=== PATIENT | male | born 1935 | race Caucasian/White ===

== ENCOUNTER → 2016-12-04 | Outpatient (CLI) | payer MEDICARE, BC ==
--- NOTE | 2016-12-04 08:01 | CT ---
EXAMINATION TYPE: CT brain wo con DATE OF EXAM: 12/04/2016 COMPARISON: NONE HISTORY: altered mental status, difficulty sleeping CT DLP: 973.[address] of the brain was performed. The ventricles, basal cisterns and sulci overlying the cerebral convexities demonstrate mild to moder ate enlargement. There is no evidence for intracranial hemorrhage or sulcal effacement. There is decreased attenuation about the periventricular white matter and deep white matter of both c erebral hemispheres, compatible with chronic small vessel ischemia. Differential diagnosis does inclu de demyelination. No mass effects are seen.No midline shift. Osseous calvarium is intact. If symptoms persist consider MRI. IMPRESSION: 1. Age related atrophic and chronic small vessel ischemic change without acute intracranial process s een at this time.
== END ==
LOC: RADCTMAIN 07:28
PROVIDERS: ATTEND Family Medicine
DX: G31.1 Senile degeneration of brain, not elsewhere classified (principal); R90.89 Other abnormal findings on diagnostic imaging of central nervous system
CPT/HCPCS: 70450

== ENCOUNTER → 2017-03-26 | Outpatient (CLI) | payer MEDICARE, BC ==
--- NOTE | 2017-03-26 16:37 | CONS ---
CONSULTATION REASON FOR CONSULTATION: Sleep apnea. 81-year-old male patient, referred to me for evaluation of sleep apnea. Nevertheless, he seems to have much more problems than simple TOAN. Noted that obstructive sleep apnea is suspected based on his loud snoring and witnessed apneas as report by his . Never the less, there are other factors that have been fragmenting this patient's sleep including excessive nocturia as the patient has undergone radiation therapy for prostate cancer and since then, he is having excessive nocturia where he has to wake up every couple of hours to empty his bladder. He also has chronic tremors and some degree of restlessness lower extremities for which he was maintained on the Requip. He also reports episodes of nightmares once or twice a month. He goes to bed around 11:00 p.m. and wakes up at 5:30 a.m. in the morning. He averages around 6 hours of sleep in general. He wakes up tired and falls asleep during the day. He takes naps. He is having troubles with memory and concentration. He has long history of claustrophobia. I am not sure he is going to be a good candidate for CPAP therapy based on his history of claustrophobia. He is also known to have multiple other medical problems and comorbidities. His current [place] score of 9. He has gained around 35 pounds over the past 5 years. He feels very sleepy while driving. At times he has dozed off behind the wheel. No history of any motor vehicle accidents because of feeling sleepy or tired. PAST MEDICAL HISTORY: 1. Obesity. 2. Prostate cancer with previous radiation therapy. 3. Coronary artery disease with previous coronary stenting. 4. Hyperlipidemia. 5. T11 spinal fracture. 6. Glaucoma. 7. Hypertension. 8. Atrial fibrillation. 9. RLS. 10.Grinding of the teeth. 11.Claustrophobia. SURGICAL HISTORY: Includes cardiac catheterization, stent insertion. Hernia repair. Laser eye surgery and the prostate radiation therapy. DRUG ALLERGIES: Not known. OUTPATIENT MEDICATION LIST: This patient is on low-dose aspirin 81 mg p.o. daily, metoprolol 50 mg p.o. daily, Protonix 40 mg p.o. daily, multivitamin 1 tablet a day, Oxycodone 7.5/325 on as needed basis, losartan 25 mg p.o. daily, Xarelto 20 mg daily, Lipitor 80 mg p.o. daily and Requip 1 mg p.o. daily. SOCIAL HISTORY: Nonsmoker. No history of alcohol. No history of IV drugs. FAMILY HISTORY: Negative for sleep apnea or any other form of sleep disease disorder. REVIEW OF SYSTEMS: 12-point review of system was done. Positive findings are mentioned above in history of present illness. Of significance is the absence of any sleepwalking or sleep talking. No palpitation. No heartburn. No nocturnal chest pain. No shortness of breath. No history of depression. He has some anxiety and claustrophobia. No ulcers. No liver problems. No diabetes mellitus. Nocturia as mentioned related to previous prostate radiation therapy for underlying current cancer. No recurrent bronchitis. No insomnia. No epilepsy or stroke, fibromyalgia or degenerative arthritis. PHYSICAL EXAMINATION: BP is 151/76, pulse 60, respirations 16, temperature 98.3 saturation 96% on room air. Weight is 244. Height is 5 feet 6 inches and neck size 17.5 inches, BMI 39.3. GENERAL APPEARANCE: Calm, comfortable, in no acute distress. HEENT: Mallampati class IV. There is no goiter or neck masses. Obvious grinding of the teeth. LUNGS: Clear to auscultation. HEART: Sounds regular rhythm. Normal S1, S2. No S3. No murmurs. ABDOMEN: Soft, nontender. No organomegaly. EXTREMITIES: No edema. No cyanosis or clubbing. SKIN: Negative for any wounds or ulceration. NEUROLOGIC: A and O x3. No focal neurological deficit. IMPRESSION: 1. Sleep fragmentation with excessive daytime sleepiness with [place] score of 9. The patient has multiple causes for chronic hypersomnia and the possibilities are A) Suspected sleep breathing disorder; B) Nocturia attributed to his chronic prostate disorder; C) restless legs syndrome currently on Requip; D) grinding/bruxism. 2. Prostate cancer with previous radiation therapy. 3. Coronary artery disease with previous coronary stenting. 4. Hyperlipidemia. 5. Glaucoma. 6. Hypertension. 7. Chronic cardiac arrhythmia with atrial fibrillation on Xarelto. 8. Restless leg syndrome. 9. Claustrophobia. PLAN: Will set up this patient for a screening polysomnogram. I think it is important for the patient to have an in lab study to look for all these factors and decide which one of these comorbidities is the most contributing factor for sleep fragmentation. The patient has had a home sleep study at an earlier stage the results of which are not available. He will however need a full polysomnogram and further recommendations are to follow based on the findings. Encourage weight loss. Implement good sleep hygiene measures. Follow up with Urology regarding his nocturia. Continue Requip at the same dose and we will continue to follow and make further recommendations based on the progress. MMODL / IJN: [id number] /
== END ==
LOC: SLEEP 13:44
PROVIDERS: ATTEND Internal Medicine Critical Care Medicine
DX: G47.10 Hypersomnia, unspecified (principal); C61 Malignant neoplasm of prostate; I25.10 Atherosclerotic heart disease of native coronary artery without angina pectoris; E78.5 Hyperlipidemia, unspecified; I10 Essential (primary) hypertension; H40.9 Unspecified glaucoma; I49.9 Cardiac arrhythmia, unspecified; G25.81 Restless legs syndrome; F40.240 Claustrophobia; Z79.82 Long term (current) use of aspirin; Z79.899 Other long term (current) drug therapy
CPT/HCPCS: 99204; 99211

== ENCOUNTER → 2017-07-23 | Outpatient (CLI) | payer MEDICARE, BC ==
--- NOTE | 2017-07-23 16:18 | PN ---
PROGRESS NOTE 81-year-old male patient with severe symptomatic sleep apnea a combination of obstructive and some central in addition apnea-hypopnea index was 61. The patient also demonstrates severe sleep fragmentation and he was complaining of increased tiredness and sleepiness during the day. The patient has also comorbid conditions including coronary artery disease, chronic atrial fibrillation, hyperlipidemia and prostate cancer. The patient underwent CPAP titration that was non successful and subsequently was supposed to receive a VPAP auto and ultimately obtain an ASV BiPAP machine knowing that the patient had some sent central apneas that were emerging while on treatment. Today, he is coming in for a compliancy check. I am a bit discouraged with his overall use of his ASV unit. Over the past 35 days, the patient has used his ASV only 14 days and he achieved more than 4 hours only 4 out of these 35 days. I noted that the patient is not using his nose pillow appropriately. He is wearing it upside down and this has affected his use and compliance as the patient has been feeling uncomfortable and having high pressure sensation while on treatment. He is waking up tired and non refreshed during the day yet he is very with the treatment. He wants to feel better. Knowing that he is tired and sleepy and sleep is very much fragmented. His weight has been stable otherwise for now. His current vitals are as follows: His BP is 140/61, pulse 66, respirations 16, temperature is 98, weight is 245, O2 saturation 96% on room air. General appearance: Calm, comfortable in no acute distress. Head is atraumatic, normocephalic. Neck is supple. There is no JVD. No goiter or neck masses. Mallampati Class IV. Lungs diminished breath sounds bilaterally. Heart sounds are irregular. Positive S1/S2. No S3. No murmurs. Abdomen is soft, nontender. No organomegaly. EXTREMITIES: No edema. No cyanosis or clubbing. NEUROLOGIC: Alert and oriented x3. Psychiatric the patient has appropriate mood and affect. SKIN: Negative for any wounds or ulceration. IMPRESSION: 1. Sleep apnea severe a combination of obstructive and central. Currently the patient on ASV mode of ventilation with a minimum pressure of minimum EPAP of 4 maximum of 11, pressure support minimum of 2 and a maximum of 7. He is utilizing an AirFit P 10 nose pillow. 2. Sleep fragmentation secondary to above. 3. Poor sleep efficiency secondary to above. 4. Poor compliance and tolerability to ASV BiPAP mainly due to mask interface and increased leaks. 5. Chronic atrial fibrillation. 6. Coronary artery disease. 7. Hyperlipidemia. 8. Obesity. 9. Prostate cancer. 10.Preserved LV function with ejection fraction of 50%. PLAN: 1. I am going to continue the same treatment with the same pressure settings. 2. Will provide this patient AirFit N10 nose mask. 3. Encourage weight loss. 4. See the patient in a very short followup to re-evaluate his compliancy data. MMODL / IJN: [id number] /
== END | disposition home or self-care (01) ==
LOC: SLEEP 13:52
PROVIDERS: ATTEND Internal Medicine Critical Care Medicine
DX: G47.33 Obstructive sleep apnea (adult) (pediatric) (principal); G47.31 Primary central sleep apnea; I48.2 Chronic atrial fibrillation; I25.10 Atherosclerotic heart disease of native coronary artery without angina pectoris; E78.5 Hyperlipidemia, unspecified; E66.9 Obesity, unspecified; C61 Malignant neoplasm of prostate; Z99.89 Dependence on other enabling machines and devices

== ENCOUNTER → 2017-08-27 | Outpatient (CLI) | payer MEDICARE, BC ==
--- NOTE | 2017-08-27 16:40 | PN ---
PROGRESS NOTE Ramiro is coming in for a followup regarding his obstructive sleep apnea. As mentioned earlier, the patient has severe symptomatic obstructive sleep apnea with an AHI of 61. He has obstructive and some central events. The patient has demonstrated severe sleep fragmentation and he was covered complaining of increased tiredness and sleepiness during the day. He is known to have coronary artery disease, chronic atrial fibrillation, hypertension and history of prostate cancer. The patient has no significant heart failure. The patient was given an ASV BiPAP machine which is set at a minimum pressure of 4, maximum pressure of 11, pressure support minimum of 2 and maximum of 7. Despite my efforts the patient was has been having hard time achieving a good seal around the mask. He was having difficulty tolerating the treatment. During his last evaluation I switched him to an AirFit N10 nose mask which he was unable to use and he went back in using and the using the AirFit F10 full-face mask. I rechecked his compliance over the past 30 days and I noted that only yesterday had a good night where he averages more than 5.5 hours of sleep. For the most part, his average sleep hours has been 3.1 hours per night. His CPAP compliancy for more than 4 hours is less than 20%. His leak factor is 18 L per minute. Tidal volumes is at 420. Respiratory rate is 18. AHI while on treatment is down to 6.6. Treatment is successful as long as the patient is able to keep the mask on for more than 4 hours. He states that last night was the best night that he had over the past several months. He seems to be committed knowing that yesterday he saw significant benefit and I am not really sure what really made a difference yesterday. His weight has been stable. He has no other complaints otherwise for now. REVIEW OF SYSTEMS: 12-point review of system was done. Positive findings are mentioned above in the history of present illness. No headaches, no altered mentation. No cough or sputum production. No nocturnal heartburn or palpitation. No swelling in lower extremities. No dysuria. No nocturia. No chronic pain. No depression or anxiety. PHYSICAL EXAMINATION: BP is 147/76, pulse 52, respirations 16, temp 98.0, saturation 95% on room air. BMI is 40.9. [place] score is 8. Weight is 250, height is 5 feet 5 inches. GENERAL APPEARANCE: Calm and comfortable. Head is atraumatic, normocephalic. NECK: Short, supple neck. No JVD. No goiter or neck mass. LUNGS: Diminished otherwise clear. HEART: Sounds regular rhythm. Normal S1, S2. No S3. No murmurs. ABDOMEN: Soft, nontender. No organomegaly. No organomegaly. EXTREMITIES: No edema. No cyanosis or clubbing. IMPRESSION: 1. Severe sleep apnea, a combination of obstructive and central, currently on ASV with a EPAP minimum of 4 and maximum of 11 and a pressure support minimum of 2 and maximum of 7. The patient is using AirFit F10 full-face mask. 2. Poor CPAP compliance and tolerability to ASV BiPAP. 3. Chronic atrial fibrillation. 4. Coronary artery disease. 5. Hyperlipidemia. 6. Obesity. 7. Prostate cancer. 8. Preserved LV function with an ejection fraction of 50%. PLAN: Seems that the treatment is headed towards a better response and tolerance. We will continue the same settings. Continue using AirFit F10 full-face mask. Importance of the treatment was explained to the patient at length especially with his severe underlying disease. He seems to be committed. Will see him back in 6 months' time in follow up for another evaluation. We will continue to follow. MMODL / IJN: [id number] /
== END | disposition home or self-care (01) ==
LOC: SLEEP 14:05
PROVIDERS: ATTEND Internal Medicine Critical Care Medicine
DX: G47.33 Obstructive sleep apnea (adult) (pediatric) (principal); I25.10 Atherosclerotic heart disease of native coronary artery without angina pectoris; I48.2 Chronic atrial fibrillation; I10 Essential (primary) hypertension; C61 Malignant neoplasm of prostate; E66.9 Obesity, unspecified; E78.5 Hyperlipidemia, unspecified; Z68.41 Body mass index [BMI] 40.0-44.9, adult; Z99.89 Dependence on other enabling machines and devices

== ENCOUNTER → 2018-04-15 | Outpatient (CLI) | payer MEDICARE, BC ==
--- NOTE | 2018-04-15 19:20 | SFUN ---
SLEEP CENTER FOLLOW UP NOTE 82-year-old male patient coming in for a followup regarding his obstructive sleep apnea treatment. The patient has severe TOAN and he has a combination of obstructive and central and he is using an ASV unit for now with a minimum EPAP pressure of 4, maximum pressure of 11, pressure support minimum of 2, maximum of 7. He is using AirFit F10 full-face mask. He has history of chronic atrial fibrillation. No history of congestion heart failure. His ejection fraction is 50%. He has also hyperlipidemia and history of prostate cancer. In terms of his body weight the patient has lost around 8 pounds. He used to weigh 250. Currently is down to 242. He is not much compliant with the treatment. His average ASV treatment is at 2.9 hours per night. He is utilizing his machine more than 4 hours only 25% of the time. His average pressure is of 15/8.5, tidal volume 450, respiratory rate of 16, mean ventilation 7.3 L/minute. AHI while on treatment is down to 10. He is using an AirFit N10 which will be switched to an AirFit N20 nose mask. No symptoms of heart failure. No palpitations. No lower extremity swelling. No orthopnea. No other complaints otherwise. PHYSICAL EXAMINATION: BP is 127/67, pulse 58, respirations 18, temperature 98, saturation 96% on room air. [place] score is at 8, BMI is 40.6. GENERAL APPEARANCE: Calm, comfortable. Head is atraumatic, normocephalic. NECK: Supple. No JVD. No goiter or neck mass. LUNGS: Diminished breath sounds. Otherwise clear. HEART: Sounds are irregular. Positive S1, S2. No S3. No murmurs. ABDOMEN: Soft, nontender. No organomegaly. EXTREMITIES: No edema. No cyanosis or clubbing. NEUROLOGIC: Alert and oriented x3. No focal neurological deficits. IMPRESSION: 1. Severe sleep apnea, a combination of obstructive and central, currently on ASV at the above-mentioned BiPAP setting. 2. Poor ASV compliance. 3. Chronic atrial fibrillation. 4. Coronary artery disease. 5. Hyperlipidemia. 6. Obesity. 7. Prostate cancer. 8. Preserved LV function with ejection fraction of 55%. PLAN: 1. Encourage further weight loss. 2. Switch this patient to an AirFit N20 nose mask. 3. Keep the same ASV setting. 4. Improved compliancy and the patient was educated and counseled in this regard. 5. Will continue to follow. MMODL / IJN: [id number] /
== END ==
LOC: SLEEP 13:11
PROVIDERS: ATTEND Internal Medicine Critical Care Medicine
DX: G47.33 Obstructive sleep apnea (adult) (pediatric) (principal); I48.2 Chronic atrial fibrillation; I25.10 Atherosclerotic heart disease of native coronary artery without angina pectoris; E78.5 Hyperlipidemia, unspecified; E66.9 Obesity, unspecified; C61 Malignant neoplasm of prostate; Z99.89 Dependence on other enabling machines and devices